=== PATIENT | female | born 2000 | race Caucasian/White ===

== ENCOUNTER 2019-02-10 15:14 | Emergency (ER) | payer MEDICAID ==
[2019-02-10 16:15] LABS: APPEARANCE,URINE SLIGHTLY-CLOUDY; BILIRUBIN,URINE NEGATIVE (NEGATIVE); COLOR,URINE YELLOW; GLUCOSE, URINE NEGATIVE (NEGATIVE); KETONES,URINE NEGATIVE (NEGATIVE); LEUKOCYTE ESTERASE,URINE MODERATE (NEGATIVE); NITRITE,URINE NEGATIVE (NEGATIVE); PROTEIN,URINE 30 mg/dL (NEGATIVE); URINE SPECIFIC GRAVITY 1.023; UROBILINOGEN,URINE NEGATIVE mg/dL (<2.0)
[2019-02-10] MEDS ORDERED: CEPHALEXIN 500 MG CAPSULE PO ONE (16:39)
[2019-02-10] MEDS ORDERED: PHENAZOPYRIDINE HCL 100 MG TABLET PO ONE (16:39)
--- NOTE | 2019-02-10 16:42 | ER Document Report ---
HPI - HPI Patient complains to provider of: uti Time Seen by Provider: 02/10/19 16:02 Onset: Yesterday Onset/Duration: Gradual Quality of pain: Burning Pain Level: 4 Context: Patient reports dysuria that started yesterday. Patient is concerned she may have UTI. Patient denies any flank pain or fever. Patient denies any nausea or vomiting. Associated Symptoms: denies: Fever, Nausea, Vomiting Exacerbated by: Denies Relieved by: Denies Similar symptoms previously: Yes Recently seen / treated by doctor: No - ROS ROS below otherwise negative: Yes Systems Reviewed and Negative: Yes All other systems reviewed and negative - CONSTITUTIONAL Constitutional: DENIES: Fever, Chills - GASTROINTESTINAL Gastrointestinal: REPORTS: Abdominal Pain. DENIES: Nausea, Patient vomiting - URINARY Urinary: REPORTS: Dysuria, Frequency. DENIES: Urgency - REPRODUCTIVE Reproductive: DENIES: : - MUSCULOSKELETAL Musculoskeletal: DENIES: Back Pain - DERM Skin Color: Normal Skin Problems: None Past Medical History - General Information source: Patient - Social History Smoking Status: Current Every Day Smoker Smoking Education Provided: Yes Frequency of alcohol use: None Drug Abuse: None Occupation: none Family History: Reviewed & Not Pertinent - Medical History Medical History: Negative Surgical Hx: Negative Vertical Provider Document - CONSTITUTIONAL Agree With Documented VS: Yes Exam Limitations: No Limitations General Appearance: WD/WN, No Apparent Distress - INFECTION CONTROL TRAVEL OUTSIDE OF THE [place] IN LAST 30 DAYS: No - HEENT HEENT: Atraumatic, Normocephalic - NECK Neck: Normal Inspection, Supple - RESPIRATORY Respiratory: Breath Sounds Normal, No Respiratory Distress - CARDIOVASCULAR Cardiovascular: Regular Rate, Regular Rhythm - GI/ABDOMEN Gastrointestinal: Abdomen Soft, Abdomen Tender - suprapubic - BACK Back: Normal Inspection. negative: CVA Tenderness-Right, CVA Tenderness-Left - MUSCULOSKELETAL/EXTREMETIES Musculoskeletal/Extremeties: MAEW, FROM - NEURO Level of Consciousness: Awake, Alert, Appropriate Motor/Sensory: No Motor Deficit - DERM Integumentary: Warm, Dry, No Rash Course - Re-evaluation Re-evalutation: 02/10/19 16:40 Patient with UTI symptoms. No CVA tenderness, no fever. No concern for pyelonephritis. Patient nontoxic in appearance. Urine culture is pending at this time. - Vital Signs Vital signs: Temp Pulse Resp BP Pulse Ox 97.6 F 95 16 126/70 H 97 02/10/19 15:20 02/10/19 15:20 02/10/19 15:20 02/10/19 15:20 02/10/19 15:20 - Laboratory Laboratory results interpreted by me: 02/10/19 16:00 Urine Protein 30 H Urine Blood MODERATE H Ur Leukocyte Esterase MODERATE H 02/10/19 16:40 Labs- Entire Visit 02/10/19 16:00 Urine Color YELLOW Urine Appearance SLIGHTLY-CLOUDY Urine pH 5.0 Ur Specific [place] 1.023 Urine Protein 30 H Urine Glucose (UA) NEGATIVE Urine Ketones NEGATIVE Urine Blood MODERATE H Urine Nitrite NEGATIVE Urine Bilirubin NEGATIVE Urine Urobilinogen NEGATIVE Ur Leukocyte Esterase MODERATE H Urine WBC (Auto) 94 Urine RBC (Auto) 17 Urine Bacteria (Auto) TRACE Squamous Epi Cells Auto 5 Urine Mucus (Auto) OCC Urine Ascorbic Acid NEGATIVE Discharge - Discharge Clinical Impression: UTI (urinary tract infection) Qualifiers: Urinary tract infection type: site unspecified Hematuria presence: with hematuria Qualified Code(s): N39.0 - Urinary tract infection, site not specified Condition: Stable Disposition: HOME, SELF-CARE Instructions: Cephalexin ([facility]), Urinary Anesthetic Agent ([facility]), Urinary Tract Infection ([facility]) Additional Instructions: Return immediately for any new or worsening symptoms Followup with your primary care provider, call tomorrow to make a followup appointment Urine culture is pending, we will call if you need any different treatment Prescriptions: Cephalexin Monohydrate [Keflex 500 mg Capsule] 500 mg PO Q6H 5 Days capsule Phenazopyridine HCl [Pyridium 200 mg Tablet] 200 mg PO TID #15 tablet Forms: Smoking Cessation Education Referrals: [facility] [Provider Group] - Follow up as needed
[2019-02-10 16:51] VITALS: BP 120/70
== END 2019-02-10 16:45 | disposition home or self-care (01) ==
LOC: ER 15:14
DX: N39.0 Urinary tract infection, site not specified (principal); R30.0 Dysuria; R10.9 Unspecified abdominal pain; R35.0 Frequency of micturition; F17.200 Nicotine dependence, unspecified, uncomplicated
CPT/HCPCS: 99283; 87086; 87088; 81001; 87186; J3490

== ENCOUNTER 2019-08-01 04:06 | Emergency (ER) | payer MEDICAID, OTHER ==
--- NOTE | 2019-08-01 09:24 | ER Document Report ---
ED General - General Chief Complaint: Cough Stated Complaint: COUGH Time Seen by Provider: 08/01/19 08:42 Primary Care Provider: DINESH LAGOS MD [Primary Care Provider] - Follow up as needed Notes: Patient is a 19-year-old white female with past medical history of allergic rhinitis who is currently 21 weeks gestation who presents to the emergency department with a chief complaint of cough for the past 3 days. She states it started off as a runny nose with intermittent nasal congestion. She admits to associated postnasal drainage that is thick. She states she is developed a cough that is dry over the past 3 days. States that when she coughs she feels pain in her anterior chest. She reports with deep breathing of cool air if she feels a burning sensation in the front of the chest. She denies any known fever, nausea, vomiting, diarrhea, abdominal pain or vaginal bleeding. Admits to sick contacts TRAVEL OUTSIDE OF THE [place] IN LAST 30 DAYS: No - Related Data Allergies/Adverse Reactions: No Known Allergies Allergy (Verified 08/01/19 04:23) Home Medications: PRE NATALS Past Medical History - Social History Smoking Status: Former Smoker Family History: Reviewed & Not Pertinent Patient has suicidal ideation: No Patient has homicidal ideation: No Renal/ Medical History: Denies: Hx Peritoneal Dialysis Review of Systems - Review of Systems EENT: Nose congestion, Nose discharge Respiratory: Cough -: Yes All other systems reviewed and negative Physical Exam - Vital signs Vitals: Temp Pulse Resp BP Pulse Ox 98.8 F 98 18 127/61 H 98 08/01/19 04:12 08/01/19 04:12 08/01/19 04:12 08/01/19 04:12 08/01/19 04:12 - General General appearance: Appears well, Alert - HEENT Head: Normocephalic, Atraumatic Eyes: Normal Conjunctiva: Normal Extraocular movements intact: Yes Eyelashes: Normal Pupils: PERRL Ears: Normal External canal: Normal Tympanic membrane: Normal Sinus: Normal Nasal: Normal Mouth/Lips: Normal Mucous membranes: Normal Pharynx: Normal Neck: Normal - Respiratory Respiratory status: No respiratory distress Chest status: Nontender Breath sounds: Normal Chest palpation: Normal - Cardiovascular Rhythm: Regular Heart sounds: Normal auscultation - Abdominal Inspection: Normal, Gravid female Distension: No distension Bowel sounds: Normal Tenderness: Nontender Organomegaly: No organomegaly - Neurological Neuro grossly intact: Yes Cognition: Normal Orientation: AAOx4 [place] Coma Scale Eye Opening: Spontaneous [place] Coma Scale Verbal: Oriented [place] Coma Scale Motor: Obeys Commands [place] Coma Scale Total: 15 Speech: Normal - Psychological Associated symptoms: Normal affect, Normal mood - Skin Skin Temperature: Warm Skin Moisture: Dry Skin Color: Normal Course - Re-evaluation Re-evalutation: 08/01/19 10:53 X-ray showing what appears to be pneumonia per radiologist. Patient will be placed on Zithromax. Counseled her regarding the importance of outpatient follow-up and advised that she return here or any ER immediately with any new, persistent or worsening symptoms. She verbalized understood and agreed. - Vital Signs Vital signs: Temp Pulse Resp BP Pulse Ox 97.9 F 106 H 20 117/68 99 08/01/19 09:09 08/01/19 09:09 08/01/19 09:09 08/01/19 09:09 08/01/19 09:09 Discharge - Discharge Clinical Impression: Pneumonia Qualifiers: Pneumonia type: due to unspecified organism Laterality: unspecified laterality Lung location: unspecified part of lung Qualified Code(s): J18.9 - Pneumonia, unspecified organism Condition: Stable Disposition: HOME, SELF-CARE Instructions: Pneumonia ([facility]) Additional Instructions: Please follow-up with your regular doctor in 2 to 3 days for reevaluation. Return here or any ER immediately with any new, persistent or worsening symptoms. Prescriptions: Azithromycin [Zithromax 250 mg Tablet] 250 mg PO ASDIR PRN #6 tablet PRN Reason: Referrals: DINESH LAGOS MD [Primary Care Provider] - Follow up as needed
--- NOTE | 2019-08-01 10:40 | RADIOLOGY REPORT (SQ) ---
EXAM DESCRIPTION: CHEST 2 VIEWS COMPLETED DATE/TIME: 08/01/2019 9:44 am REASON FOR STUDY: cough COMPARISON: None. EXAM PARAMETERS: NUMBER OF VIEWS: two views TECHNIQUE: Digital Frontal and Lateral radiographic views of the chest acquired. RADIATION DOSE: NA LIMITATIONS: none FINDINGS: LUNGS AND PLEURA: Focal dense consolidation is present in the superior segment right lower lobe worrisome for pneumonia. Lungs are otherwise clear. No pleural effusion or pneumothorax. MEDIASTINUM AND HILAR STRUCTURES: No masses or contour abnormalities. HEART AND VASCULAR STRUCTURES: Heart normal size. No evidence for failure. BONES: No acute findings. HARDWARE: None in the chest. OTHER: No other significant finding. IMPRESSION: Focal dense consolidation superior segment right lower lobe worrisome for pneumonia TECHNICAL DOCUMENTATION: JOB ID: [id number] [employer]- All Rights Reserved Reading location - IP/workstation name: [email or web address]
[2019-08-01 12:01] VITALS: BP 124/68
== END 2019-08-01 11:35 | disposition home or self-care (01) ==
LOC: ER 04:06
DX: O26.892 Other specified pregnancy related conditions, second trimester (principal); J18.9 Pneumonia, unspecified organism; Z3A.21 21 weeks gestation of pregnancy
CPT/HCPCS: 71046

== ENCOUNTER 2019-09-26 17:31 | Outpatient (CLI) | payer MEDICAID ==
[2019-09-26 18:17] LABS: APPEARANCE,URINE SLIGHTLY-CLOUDY; BILIRUBIN,URINE NEGATIVE (NEGATIVE); COLOR,URINE YELLOW; GLUCOSE, URINE NEGATIVE (NEGATIVE); KETONES,URINE NEGATIVE (NEGATIVE); LEUKOCYTE ESTERASE,URINE SMALL (NEGATIVE); NITRITE,URINE NEGATIVE (NEGATIVE); PROTEIN,URINE 30 mg/dL (NEGATIVE); URINE SPECIFIC GRAVITY 1.016; UROBILINOGEN,URINE NEGATIVE mg/dL (<2.0)
[2019-09-26 18:23] LABS: T.VAGINALIS (WET MOUNT) NO TRICHOMONAS SEEN; YEAST (WET MOUNT) NO YEAST SEEN
[2019-09-26 18:24] LABS: BACTERIA (WET MOUNT) 3+ BACTERIA SEEN; EPITHELIALS (WET MOUNT) 3+ EPITHELIALS SEEN; RBCS (WET MOUNT) 1+ RBCS SEEN; WBCS (WET MOUNT) 1+ WBCS SEEN
[2019-09-26 18:53] LABS: URINE AMPHETAMINES SCREEN NEGATIVE; URINE BARBITURATES SCREEN NEGATIVE; URINE BENZODIAZEPINES SCREEN NEGATIVE; URINE COCAINE SCREEN NEGATIVE; URINE MARIJUANA (THC) SCREEN NEGATIVE; URINE METHADONE SCREEN NEGATIVE; URINE PHENCYCLIDINE SCREEN NEGATIVE
--- NOTE | 2019-09-26 19:29 | RADIOLOGY REPORT (SQ) ---
EXAM DESCRIPTION: U/S OB LIMITED IMAGES COMPLETED DATE/TIME: 09/26/2019 7:17 pm REASON FOR STUDY: cervical length, pres, fluid COMPARISON: None. TECHNIQUE: Limited transabdominal grayscale ultrasound for evaluation of specific requested obstetri therese parameters. LIMITATIONS: None. FINDINGS: CERVICAL LENGTH: 2.7 cm Closed. KARLEE: 13.8 cm. FHR: 149 beats per minute. PRESENTATION: Breech PLACENTA: Anterior ANATOMY: Not assessed OTHER: Estimated gestational age 29 weeks 2 days IMPRESSION: LIMITED OBSTETRICAL ULTRASOUND WITH MEASURED PARAMETERS DELINEATED ABOVE. Trimester of : Third trimester - 28 weeks to delivery. TECHNICAL DOCUMENTATION: JOB ID: [id number] 2010 [employer]- All Rights Reserved Reading location - IP/workstation name: [email or web address]
[2019-09-26 20:49] LABS: CHLAM PCR NOT DETECTED (NOT DETECT)
== END 2019-09-26 21:03 | disposition home or self-care (01) ==
LOC: LC 17:31
PROVIDERS: ATTEND Student in an Organized Health Care Education/Training Program
DX: O47.03 False labor before 37 completed weeks of gestation, third trimester (principal); O99.283 Endocrine, nutritional and metabolic diseases complicating pregnancy, third trimester; E86.0 Dehydration; Z3A.29 29 weeks gestation of pregnancy
CPT/HCPCS: 59899; 87210; 81001; 80307; 87491; 87591; 76815; Q0114

== ENCOUNTER 2019-10-26 19:02 | Outpatient (CLI) | payer MEDICARE, MEDICAID ==
[2019-10-26 19:55] LABS: BACTERIA (WET MOUNT) 4+ BACTERIA SEEN; EPITHELIALS (WET MOUNT) 4+ EPITHELIALS SEEN; RBCS (WET MOUNT) 1+ RBCS SEEN; T.VAGINALIS (WET MOUNT) NO TRICHOMONAS SEEN; WBCS (WET MOUNT) 1+ WBCS SEEN; YEAST (WET MOUNT) NO YEAST SEEN
[2019-10-26 19:58] LABS: APPEARANCE,URINE CLOUDY; BILIRUBIN,URINE NEGATIVE (NEGATIVE); CALCIUM OXALATE CRYSTALS,URINE TOO NUMEROUS TO CNT /HPF; COLOR,URINE AMBER; GLUCOSE, URINE 50 mg/dL (NEGATIVE); KETONES,URINE TRACE mg/dL (NEGATIVE); LEUKOCYTE ESTERASE,URINE MODERATE (NEGATIVE); NITRITE,URINE NEGATIVE (NEGATIVE); PROTEIN,URINE 100 mg/dL (NEGATIVE); URINE SPECIFIC GRAVITY 1.033
[2019-10-26 20:22] LABS: URINE AMPHETAMINES SCREEN NEGATIVE; URINE BARBITURATES SCREEN NEGATIVE; URINE BENZODIAZEPINES SCREEN NEGATIVE; URINE COCAINE SCREEN NEGATIVE; URINE MARIJUANA (THC) SCREEN NEGATIVE; URINE METHADONE SCREEN NEGATIVE; URINE PHENCYCLIDINE SCREEN NEGATIVE
[2019-10-26 21:21] LABS: CHLAM PCR NOT DETECTED (NOT DETECT)
--- NOTE | 2019-10-26 22:12 | Non Stress Test Report ---
Non Stress Test Datetime Report Generated by CPN: 10/26/2019 22:12 DEMOGRAPHIC Test Number: 1 EGA NST: 33.4 INDICATION Indication for Study (NST) Other: LC URINE RESULTS Urine Protein, NST: Positive Urine Ketones - NST: Negative Urine Glucose - NST: Negative Urine Blood - NST: Negative MONITORING Monitor Explained: Monitor Explained; Test Explained; Patient Verbalized Understanding Time on Monitor: 10/26/2019 19:35 Time off Monitor: 10/26/2019 21:35 NST Duration: 120 NST INTERVENTIONS NST Interventions: PO Hydration Physician Notified NST: Dr. Rosado BABY A: [id number] BABY A Movement : Present Contraction Frequency : x1 FHR Baseline : 130 Accelerations : 15X15 Decelerations : None Variability : Moderate 6-25bpm NST Review: Meets Criteria for Reactive NST NST Review and Verified By : García Rich RN NST Results: Reactive NST REPORT Report Trigger: Send Report
== END 2019-10-26 21:49 | disposition home or self-care (01) ==
LOC: LC 19:02
PROVIDERS: ATTEND Student in an Organized Health Care Education/Training Program
DX: O47.03 False labor before 37 completed weeks of gestation, third trimester (principal); Z3A.33 33 weeks gestation of pregnancy
CPT/HCPCS: 59025; 80307; 81001; 84112; 87086; 87210; 87491; 87591

== ENCOUNTER 2019-11-21 20:22 | Outpatient (CLI) | payer MEDICARE, MEDICAID ==
[2019-11-21 21:45] LABS: APPEARANCE,URINE SLIGHTLY-CLOUDY; BILIRUBIN,URINE NEGATIVE (NEGATIVE); COLOR,URINE YELLOW; GLUCOSE, URINE NEGATIVE (NEGATIVE); KETONES,URINE TRACE mg/dL (NEGATIVE); LEUKOCYTE ESTERASE,URINE SMALL (NEGATIVE); NITRITE,URINE NEGATIVE (NEGATIVE); PROTEIN,URINE NEGATIVE (NEGATIVE); URINE SPECIFIC GRAVITY 1.008; UROBILINOGEN,URINE NEGATIVE mg/dL (<2.0)
[2019-11-21 22:07] LABS: URINE AMPHETAMINES SCREEN NEGATIVE; URINE BARBITURATES SCREEN NEGATIVE; URINE BENZODIAZEPINES SCREEN NEGATIVE; URINE COCAINE SCREEN NEGATIVE; URINE MARIJUANA (THC) SCREEN NEGATIVE; URINE METHADONE SCREEN NEGATIVE; URINE PHENCYCLIDINE SCREEN NEGATIVE
== END 2019-11-21 22:13 | disposition home or self-care (01) ==
LOC: LC 20:22
PROVIDERS: ATTEND Student in an Organized Health Care Education/Training Program
DX: O47.1 False labor at or after 37 completed weeks of gestation (principal); Z3A.37 37 weeks gestation of pregnancy
CPT/HCPCS: 59025; 80307; 81005

== ENCOUNTER 2019-12-01 08:51 | Outpatient (CLI) | payer MEDICARE, MEDICAID ==
[2019-12-01 09:43] LABS: BACTERIA (WET MOUNT) 4+ BACTERIA SEEN; EPITHELIALS (WET MOUNT) 4+ EPITHELIALS SEEN; RBCS (WET MOUNT) 1+ RBCS SEEN; T.VAGINALIS (WET MOUNT) NO TRICHOMONAS SEEN; WBCS (WET MOUNT) 3+ WBCS SEEN; YEAST (WET MOUNT) NO YEAST SEEN
[2019-12-01 09:44] LABS: AMORPHOUS SEDIMENT,URINE TRACE /HPF; APPEARANCE,URINE CLOUDY; BILIRUBIN,URINE NEGATIVE (NEGATIVE); COLOR,URINE AMBER; GLUCOSE, URINE NEGATIVE (NEGATIVE); KETONES,URINE NEGATIVE (NEGATIVE); LEUKOCYTE ESTERASE,URINE LARGE (NEGATIVE); NITRITE,URINE NEGATIVE (NEGATIVE); PROTEIN,URINE 30 mg/dL (NEGATIVE); UROBILINOGEN,URINE NEGATIVE mg/dL (<2.0)
[2019-12-01 10:04] LABS: URINE AMPHETAMINES SCREEN NEGATIVE; URINE BARBITURATES SCREEN NEGATIVE; URINE BENZODIAZEPINES SCREEN NEGATIVE; URINE COCAINE SCREEN NEGATIVE; URINE MARIJUANA (THC) SCREEN NEGATIVE; URINE METHADONE SCREEN NEGATIVE; URINE PHENCYCLIDINE SCREEN NEGATIVE
--- NOTE | 2019-12-01 11:57 | Non Stress Test Report ---
Non Stress Test Datetime Report Generated by CPN: 12/01/2019 11:56 DEMOGRAPHIC EGA NST: 38.5 INDICATION Indication for Study (NST) Other: LC- not ruptured MONITORING Monitor Explained: Monitor Explained; Test Explained; Patient Verbalized Understanding Time on Monitor: 12/01/2019 10:30 Time off Monitor: 12/01/2019 10:51 NST Duration: 21 NST INTERVENTIONS NST Interventions: PO Hydration Physician Notified NST: K. Hutchinson CNM BABY A Movement : Present Contraction Frequency : irregular Accelerations : 15X15 Decelerations : None Variability : Moderate 6-25bpm NST Review: Meets Criteria for Reactive NST NST Review and Verified By : Dhruv Romero RN NST Results: Reactive NST COMMENTS NST Comments: CNM on unit reviewing FHT strip NST REPORT Report Trigger: Send Report
[2019-12-01 12:39] LABS: CHLAM PCR NOT DETECTED (NOT DETECT)
== END 2019-12-01 11:53 | disposition home or self-care (01) ==
LOC: LC 08:51
PROVIDERS: ATTEND Student in an Organized Health Care Education/Training Program
DX: O47.1 False labor at or after 37 completed weeks of gestation (principal); Z3A.38 38 weeks gestation of pregnancy
CPT/HCPCS: 59025; 80307; 81001; 84112; 87210; 87491; 87591

== ENCOUNTER 2019-12-02 18:31 | Outpatient (CLI) | payer MEDICARE, MEDICAID ==
[2019-12-02 19:40] LABS: APPEARANCE,URINE CLEAR; BILIRUBIN,URINE NEGATIVE (NEGATIVE); COLOR,URINE YELLOW; GLUCOSE, URINE NEGATIVE (NEGATIVE); KETONES,URINE NEGATIVE (NEGATIVE); LEUKOCYTE ESTERASE,URINE TRACE (NEGATIVE); NITRITE,URINE NEGATIVE (NEGATIVE); PROTEIN,URINE NEGATIVE (NEGATIVE); URINE SPECIFIC GRAVITY 1.004; UROBILINOGEN,URINE NEGATIVE mg/dL (<2.0)
[2019-12-02 20:01] LABS: URINE AMPHETAMINES SCREEN NEGATIVE; URINE BARBITURATES SCREEN NEGATIVE; URINE BENZODIAZEPINES SCREEN NEGATIVE; URINE COCAINE SCREEN NEGATIVE; URINE MARIJUANA (THC) SCREEN NEGATIVE; URINE METHADONE SCREEN NEGATIVE; URINE PHENCYCLIDINE SCREEN NEGATIVE
== END 2019-12-02 19:35 | disposition home or self-care (01) ==
LOC: LC 18:31
PROVIDERS: ATTEND Obstetrics & Gynecology Gynecology
DX: O47.1 False labor at or after 37 completed weeks of gestation (principal); Z3A.38 38 weeks gestation of pregnancy; Z91.018 Allergy to other foods
CPT/HCPCS: 80307; 81005

== ENCOUNTER 2019-12-05 15:16 | Outpatient (CLI) | payer MEDICARE, MEDICAID ==
[2019-12-05 16:18] LABS: APPEARANCE,URINE CLEAR; BILIRUBIN,URINE NEGATIVE (NEGATIVE); COLOR,URINE YELLOW; GLUCOSE, URINE NEGATIVE (NEGATIVE); KETONES,URINE NEGATIVE (NEGATIVE); LEUKOCYTE ESTERASE,URINE TRACE (NEGATIVE); NITRITE,URINE NEGATIVE (NEGATIVE); PROTEIN,URINE NEGATIVE (NEGATIVE); URINE SPECIFIC GRAVITY 1.009; UROBILINOGEN,URINE NEGATIVE mg/dL (<2.0)
[2019-12-05 16:35] LABS: URINE AMPHETAMINES SCREEN NEGATIVE; URINE BARBITURATES SCREEN NEGATIVE; URINE BENZODIAZEPINES SCREEN NEGATIVE; URINE COCAINE SCREEN NEGATIVE; URINE MARIJUANA (THC) SCREEN NEGATIVE; URINE METHADONE SCREEN NEGATIVE; URINE PHENCYCLIDINE SCREEN NEGATIVE
== END 2019-12-05 16:53 | disposition home or self-care (01) ==
LOC: LC 15:16
PROVIDERS: ATTEND Student in an Organized Health Care Education/Training Program
DX: O47.1 False labor at or after 37 completed weeks of gestation (principal); Z3A.39 39 weeks gestation of pregnancy; Z91.018 Allergy to other foods
CPT/HCPCS: 80307; 81005

== ENCOUNTER 2019-12-07 20:54 | Outpatient (CLI) | payer MEDICARE, MEDICAID ==
[2019-12-07 21:56] LABS: APPEARANCE,URINE CLEAR; BILIRUBIN,URINE NEGATIVE (NEGATIVE); COLOR,URINE YELLOW; GLUCOSE, URINE NEGATIVE (NEGATIVE); KETONES,URINE TRACE mg/dL (NEGATIVE); LEUKOCYTE ESTERASE,URINE NEGATIVE (NEGATIVE); NITRITE,URINE NEGATIVE (NEGATIVE); PROTEIN,URINE NEGATIVE (NEGATIVE); URINE SPECIFIC GRAVITY 1.009
[2019-12-07 22:19] LABS: URINE AMPHETAMINES SCREEN NEGATIVE; URINE BARBITURATES SCREEN NEGATIVE; URINE BENZODIAZEPINES SCREEN NEGATIVE; URINE COCAINE SCREEN NEGATIVE; URINE MARIJUANA (THC) SCREEN NEGATIVE; URINE METHADONE SCREEN NEGATIVE; URINE PHENCYCLIDINE SCREEN NEGATIVE
--- NOTE | 2019-12-09 15:07 | Non Stress Test Report ---
Non Stress Test Datetime Report Generated by CPN: 12/09/2019 15:07 DEMOGRAPHIC EGA NST: 39.4 INDICATION Indication for Study (NST) Other: Labor check MONITORING Monitor Explained: Monitor Explained; Test Explained; Patient Verbalized Understanding Time on Monitor: 12/07/2019 21:15 Time off Monitor: 12/07/2019 22:25 NST Duration: 70 NST INTERVENTIONS NST Interventions: PO Hydration Physician Notified NST: Dr. English BABY A: [id number] BABY A Movement : Present Contraction Frequency : irregular FHR Baseline : 135 Accelerations : 15X15 Decelerations : None Variability : Moderate 6-25bpm NST Review: Meets Criteria for Reactive NST NST Review and Verified By : García Rich RN NST Results: Reactive NST REPORT Report Trigger: Send Report
== END 2019-12-07 22:40 | disposition home or self-care (01) ==
LOC: LC 20:54
PROVIDERS: ATTEND Obstetrics & Gynecology
DX: O47.1 False labor at or after 37 completed weeks of gestation (principal); Z3A.39 39 weeks gestation of pregnancy
CPT/HCPCS: 80307; 81005; 84112

== ENCOUNTER 2019-12-09 16:19 | Inpatient (IN) | payer MEDICARE, MEDICAID ==
[2019-12-09 17:48] LABS: APPEARANCE,URINE SLIGHTLY-CLOUDY; BILIRUBIN,URINE NEGATIVE (NEGATIVE); COLOR,URINE YELLOW; GLUCOSE, URINE NEGATIVE (NEGATIVE); KETONES,URINE TRACE mg/dL (NEGATIVE); LEUKOCYTE ESTERASE,URINE LARGE (NEGATIVE); NITRITE,URINE NEGATIVE (NEGATIVE); PROTEIN,URINE NEGATIVE (NEGATIVE); URINE SPECIFIC GRAVITY 1.005; UROBILINOGEN,URINE NEGATIVE mg/dL (<2.0)
[2019-12-09 18:59] LABS: ABSOLUTE LYMPHOCYTES (AUTO) 1.7 10^3/uL (0.5-4.7); ABSOLUTE MONOCYTES (AUTO) 0.4 10^3/uL (0.1-1.4); ABSOLUTE NEUT (AUTO) 8.5 10^3/uL (1.7-8.2); BASOPHILS % (AUTO) 0.4 % (0-2); EOSINOPHILS % (AUTO) 0.2 % (0-6); HEMATOCRIT 37.7 % (36.0-47.0); HEMOGLOBIN 12.9 g/dL (12.0-15.5); LYMPHOCYTES % (AUTO) 15.7 % (13-45); MEAN CORPUSCULAR HEMOGLOBIN 30.2 pg (27.0-33.4); MEAN CORPUSCULAR HGB CONC 34.2 g/dL (32.0-36.0); MEAN CORPUSCULAR VOLUME 89 fl (80-97); MONOCYTES % (AUTO) 4.2 % (3-13); PLATELET COUNT 235 10^3/uL (150-450); RED BLOOD COUNT 4.26 10^6/uL (3.72-5.28); SEGMENTED NEUTROPHILS % (AUTO) 79.5 % (42-78); TOTAL CELLS COUNTED % (AUTO) 100 %; WHITE BLOOD COUNT 10.6 10^3/uL (4.0-10.5)
[2019-12-09 19:03] LABS: URINE AMPHETAMINES SCREEN NEGATIVE; URINE BARBITURATES SCREEN NEGATIVE; URINE BENZODIAZEPINES SCREEN NEGATIVE; URINE COCAINE SCREEN NEGATIVE; URINE MARIJUANA (THC) SCREEN NEGATIVE; URINE METHADONE SCREEN NEGATIVE; URINE PHENCYCLIDINE SCREEN NEGATIVE
[2019-12-09] MEDS ORDERED: RINGERS SOLUTION,LACTATED 1,000 ML IV PRN (19:04)
[2019-12-09] MEDS ORDERED: RINGERS SOLUTION,LACTATED 1,000 ML IV ONE (19:04)
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
[2019-12-09] MEDS ORDERED: OXYTOCIN 10 UNIT/ML VIAL ONE (19:35)
[2019-12-09] MEDS ORDERED: LIDOCAINE 1% INJ-PF (10 MG/ML) 30 ML SDV ONE (19:36)
[2019-12-09] MEDS ORDERED: OXYTOCIN/0.9 % SODIUM CHLORIDE 30 UNIT/500 ML RTUINJ ONE (19:36)
[2019-12-09] MEDS ORDERED: MISOPROSTOL 0.2 MG TABLET ONE (19:36)
[2019-12-09] MEDS ORDERED: PENICILLIN G-K 5 MILLION UNIT VIAL ONE (20:12)
[2019-12-09] MEDS ORDERED: PENICILLIN G POTASSIUM 5,000,000 UNIT in DEXTROSE 5%-WATER 100 ML IV ONE (20:32)
[2019-12-09] MEDS ORDERED: PROMETHAZINE HCL INJ 25 MG/1 ML VIAL IV ONE (21:34)
[2019-12-09] MEDS ORDERED: NALBUPHINE HCL INJ 10 MG/1 ML AMPULE INJ ONE (21:34)
[2019-12-09] MEDS ORDERED: OXYTOCIN/0.9 % SODIUM CHLORIDE 30 UNIT/500 ML RTUINJ IV PRN ×2 (21:35→23:57)
[2019-12-09] MEDS ORDERED: PROMETHAZINE HCL INJ 25 MG/1 ML VIAL ONE (21:35)
[2019-12-09] MEDS ORDERED: NALBUPHINE HCL INJ 10 MG/1 ML AMPULE ONE (21:35)
[2019-12-09] MEDS ORDERED: EPHEDRINE SULFATE INJ 50 MG/1 ML AMPULE ONE (22:36)
[2019-12-09] MEDS ORDERED: BUPIVACAINE HCL 0.25 % INJ/PF (2.5 MG/1 ML) 30 ML VIAL ONE (22:37)
[2019-12-09] MEDS ORDERED: FENTANYL/BUPIVACAINE/NS/PF 0 MCG/0 ML RTUINJ EPI ONE (22:37)
[2019-12-09] MEDS ORDERED: ACETAMINOPHEN WITH CODEINE #3 TABLET PO PRN ×2 (23:57)
[2019-12-09] MEDS ORDERED: PSEUDOEPHEDRINE HCL 30 MG TABLET PO PRN (23:57)
[2019-12-09] MEDS ORDERED: BENZOCAINE/MENTHOL AEROSOL SPRAY 56 ML TOP PRN (23:57)
[2019-12-09] MEDS ORDERED: DIPH/PERTUSS(ACELL)/TETANUS VAC/PF 0.5 ML SYR (>=10YO) IM PRN (23:57)
[2019-12-09] MEDS ORDERED: ZOLPIDEM TARTRATE 5 MG TABLET PO PRN (23:57)
[2019-12-09] MEDS ORDERED: ACETAMINOPHEN 650 MG SUPP.RECT PR PRN (23:57)
[2019-12-09] MEDS ORDERED: MAGNESIUM HYDROXIDE SUSP 30 ML UDCUP PO PRN (23:57)
[2019-12-09] MEDS ORDERED: NA PHOS,M-B/NA PHOS,DI-BA (ADULT) 133 ML ENEMA PR PRN (23:57)
[2019-12-09] MEDS ORDERED: PROMETHAZINE HCL 25 MG TABLET PO PRN (23:57)
[2019-12-09] MEDS ORDERED: DIBUCAINE 1% OINTMENT 28 GM TP PRN (23:57)
[2019-12-09] MEDS ORDERED: MEASLES,MUMPS&RUBELLA VACC/PF 0.5 ML VIAL SUBCUT PRN (23:57)
[2019-12-09] MEDS ORDERED: PROMETHAZINE HCL INJ 25 MG/1 ML VIAL IV PRN (23:57)
[2019-12-09] MEDS ORDERED: DIPHENHYDRAMINE HCL 25 MG CAPSULE PO PRN (23:57)
[2019-12-09] MEDS ORDERED: GLYCERIN/WITCH HAZEL LEAF 1 EACH MED..WIPE TP PRN (23:57)
[2019-12-09] MEDS ORDERED: PROMETHAZINE HCL 25 MG SUPP.RECT PR PRN (23:57)
[2019-12-10] MEDS ORDERED: PENICILLIN G POTASSIUM 2,500,000 UNIT in DEXTROSE 5%-WATER 50 ML IV SCH (00:30)
[2019-12-10] MEDS ORDERED: IBUPROFEN 800 MG TABLET ONE (00:38)
--- NOTE | 2019-12-10 01:01 | Delivery Summary ---
Del Sum A-C Datetime Report Generated by CPN: 12/10/2019 01:01 DELIVERY PERSONNEL DELIVERY PERSONNEL: [id number] Delivery Doctor:: Angélica Graf MD Labor and Delivery Nurse:: Kimberley Lujan RNscreen tacker Nurse:: Jada Ayala RN Night Nurse:: JAROD Frazier Nursery Nurse:: xi irizarry RN Nursery Nurse:: margaret aviles RN Medical Records Field Technician/CLERK: Noa Flynn, ST MATERNAL INFORMATION Delivery Anesthesia: None Medications After Delivery: Pitocin 30 Units in 500ml NS/D5W Estimated Blood Loss (ml): 200 Maternal Complications: Other Complication Details: mental LABOR SUMMARY EDC: 12/10/2019 00:00 No. Babies in Womb: 1 Attempted: No Labor Anesthesia: IV Sedation LABOR INFORMATION Reason for Induction: Not Applicable Onset of Labor: 12/09/2019 17:36 Complete Dilatation: 12/09/2019 23:10 Oxytocin: Augmentation Group B Beta Strep: POSITIVE Antibiotics # of Doses: 1 Antibiotics Time of Last Dose: 2017 Name of Antibiotic Given: penicillin Steroids Given: None Reason Steroids Not Administered: Not Applicable MEMBRANES Membranes Rupture Method: Artificial Rupture of Membranes: 12/09/2019 21:28 Length of Rupture (hr): 2.00 Amniotic Fluid Color: Clear Amniotic Fluid Amount: Small Amniotic Fluid Odor: Normal STAGES OF LABOR Stage 1 hr: 5 Stage 1 min: 34 Stage 2 hr: 0 Stage 2 min: 18 Stage 3 hr: 24 Stage 3 min: 3 Total Time in Labor hr: 29 Total Time in Labor min: 55 VAGINAL DELIVERY Episiotomy: None Laceration #1: Vaginal Laceration Extension #1: Second Degree Laceration Repair: Yes Laceration Repair Note: 2-0 chromic in normal fashion Sponge Count Correct: Yes Sharps Count Correct: Yes CSECTION DELIVERY Primary Indication: N/A Secondary Indication: N/A CSection Incidence: N/A Labor: N/A Elective: N/A CSection Incision: N/A BABY A INFORMATION Delivery Date/Time: 12/09/2019 23:28 Method of Delivery: Vaginal Nurse Controlled Delivery: No Born in Route : No : N/A Forceps: N/A Vacuum Extraction: N/A Shoulder Dystocia : No PRESENTATION/POSITION BABY A Presentation: Cephalic Cephalic Presentation: Vertex Vertex Position: Left Occipital Anterior Breech Presentation: N/A PLACENTA INFORMATION BABY A Placenta Delivery Time : 12/10/2019 23:31 Placenta Method of Delivery: Spontaneous Placenta Status: Delivered SCORES BABY A Heart Rate 1 min: >100 bpm Resp Effort 1 min: Slow, Irregular Reflex Irritability 1 min: Cough or Sneeze or Pulls Away Muscle Tone 1 min: Active Motion Color 1 min: Body Mallard, Extremities Blue Resuscitation Effort 1 min: Tactile Stimulation SCORE 1 MIN: 8 Heart Rate 5 min: >100 bpm Resp Effort 5 min: Good Cry Reflex Irritability 5 min: Cough or Sneeze or Pulls Away Muscle Tone 5 min: Active Motion Color 5 min: Body Mallard, Extremities Blue Resuscitation Effort 5 min: Tactile Stimulation SCORE 5 MIN: 9 INFORMATION BABY A Gestational Age at Delivery: 39.6 Gestational Status: Full Term- 39- 40.6 Weeks Infant Outcome : Liveborn Infant Condition : Stable Sex: Female IDENTIFICATION BABY A Verification Date/Time: 12/09/2019 23:37 ID Band Number: [id number] Mother's Name Verified: Yes RN Verifying Infant: SNamrata Lujan, RN Additional Verifying Personnel: LNamrata Flynn, TOBACCO GROWER WEIGHT/LENGTH BABY A Infant Birthweight (gm): 3455 Weight (lb): 7 Weight (oz): 10 Infant Length (in): 21.00 Length (cm): 53.34 CORD INFORMATION BABY A No. Cord Vessels: 3 Nuchal Cord : Around Neck x1, Loose Cord Blood Taken: Yes-For Storage (Mom's Blood type +) Suction: Mouth; Nose BABY B INFORMATION : N/A SIGNATURES Signature: with User ID: [email or web address]
[2019-12-10] MEDS: FAMOTIDINE 20 MG TABLET PO SCH ×3 (03:51→21:03)
[2019-12-10] MEDS ORDERED: IBUPROFEN 800 MG TABLET PO SCH (06:00)
[2019-12-10 07:58] LABS: HEMATOCRIT 33.1 % (36.0-47.0); HEMOGLOBIN 11.4 g/dL (12.0-15.5); MEAN CORPUSCULAR HEMOGLOBIN 30.2 pg (27.0-33.4); MEAN CORPUSCULAR HGB CONC 34.3 g/dL (32.0-36.0); MEAN CORPUSCULAR VOLUME 88 fl (80-97); PLATELET COUNT 205 10^3/uL (150-450); RED BLOOD COUNT 3.76 10^6/uL (3.72-5.28); WHITE BLOOD COUNT 12.1 10^3/uL (4.0-10.5)
[2019-12-10] MEDS: DOCUSATE SODIUM 100 MG CAPSULE PO SCH ×2 (09:47→19:06)
[2019-12-10] MEDS: PRENATAL VITAMIN W DHA CAPSULE PO SCH (09:47)
[2019-12-10] MEDS: FERROUS SULFATE 325 MG TABLET PO SCH ×2 (09:48→19:05)
[2019-12-10] MEDS: SENNOSIDES/DOCUSATE 8.6-50 MG 1 EACH TABLET PO SCH (09:52)
--- NOTE | 2019-12-10 10:52 | PDOC PROGRESS REPORT ---
Subjective-OB Progress Note for:: 12/10/19 Physical Exam (OB) Vital Signs: Temp Pulse Resp BP Pulse Ox 97.9 F 83 16 126/78 H 100 12/10/19 07:55 12/10/19 07:55 12/10/19 07:55 12/10/19 07:55 12/10/19 07:55 Intake & Output 12/09/19 12/10/19 12/11/19 06:59 06:59 06:59 Intake Total 580 Output Total 700 Balance -700 580 Weight 82.6 kg - PIH/Pre-Eclampsia Headache: Absent Epigastric Pain: No Visual Changes: No - Lochia Lochia Amount: Small 10-25 ml Lochia Color: Rubra/Red - Abdomen Description: Tender Hernia Present: No Bowel Sounds: Normoactive Flatus Presence: Present Stool: No Fundal Description: Firm Fundal Height: u/u - u/2 Objective-Diagnostic Laboratory: 12/10/19 07:48 12/09/19 12/09/19 12/09/19 16:35 18:37 18:37 WBC 10.6 H RBC 4.26 Hgb 12.9 Hct 37.7 MCV 89 MCH 30.2 MCHC 34.2 RDW 14.0 Plt Count 235 Seg Neutrophils % 79.5 H Urine Color YELLOW Urine Appearance SLIGHTLY-CLOUDY Urine pH 7.0 Ur Specific [place] 1.005 Urine Protein NEGATIVE Urine Glucose (UA) NEGATIVE Urine Ketones TRACE H Urine Blood NEGATIVE Urine Nitrite NEGATIVE Ur Leukocyte Esterase LARGE H Blood Type A POSITIVE Antibody Screen NEGATIVE 12/10/19 07:48 WBC 12.1 H RBC 3.76 Hgb 11.4 L Hct 33.1 L MCV 88 MCH 30.2 MCHC 34.3 RDW 14.0 Plt Count 205 Seg Neutrophils % Urine Color Urine Appearance Urine pH Ur Specific [place] Urine Protein Urine Glucose (UA) Urine Ketones Urine Blood Urine Nitrite Ur Leukocyte Esterase Blood Type Antibody Screen
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
[2019-12-10] MEDS: IBUPROFEN 800 MG TABLET PO SCH (19:06)
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
[2019-12-11] MEDS: IBUPROFEN 800 MG TABLET PO SCH ×3 (02:27→18:18)
[2019-12-11] MEDS ORDERED: (PENDING PHARMACY ID) (Sertraline Hcl [Sertraline Hcl] 25 MG) PO SCH (10:00)
[2019-12-11] MEDS: OLANZAPINE 2.5 MG TABLET PO SCH ×2 (10:19→18:18)
[2019-12-11] MEDS: FAMOTIDINE 20 MG TABLET PO SCH ×2 (10:20→22:12)
[2019-12-11] MEDS: PRENATAL VITAMIN W DHA CAPSULE PO SCH (10:20)
[2019-12-11] MEDS: DOCUSATE SODIUM 100 MG CAPSULE PO SCH ×2 (10:21→18:18)
[2019-12-11] MEDS: FERROUS SULFATE 325 MG TABLET PO SCH ×2 (10:22→18:18)
[2019-12-11] MEDS: SENNOSIDES/DOCUSATE 8.6-50 MG 1 EACH TABLET PO SCH (10:22)
--- NOTE | 2019-12-11 11:24 | PDOC PROGRESS REPORT ---
Subjective-OB Progress Note for:: 12/11/19 Subjective: Pt is on the phone with her sister who she lives with. FOB at bedside. Pt is distressed and cannot answer question about her bleeding, whether it is heavy or light. She seem to be confused and frustrated. Pt cannot seem to answer simple questions on her own and is seemingly overwhelmed with having different people in her room to check on her and ask her questions. She is unable to hold a conversation and is on the verge of tears. Her sister on the phone was trying to keep her calm and explain that we are just there to check on her because patient states that people keep coming in and leaving her. RN in room trying to assess patient. Physical Exam (OB) Vital Signs: Temp Pulse Resp BP Pulse Ox 97.8 F 86 20 121/64 98 12/11/19 08:00 12/11/19 08:00 12/11/19 08:00 12/11/19 08:00 12/11/19 08:00 Intake & Output 12/10/19 12/11/19 12/12/19 06:59 06:59 06:59 Intake Total 1180 480 Output Total 700 Balance -700 1180 480 Weight 82.6 kg - PIH/Pre-Eclampsia DTR's: 2 + Clonus: Negative Headache: Absent Epigastric Pain: No Visual Changes: No - Lochia Lochia Amount: Scant < 10 ml Lochia Color: Rubra/Red - Abdomen Description: Soft Hernia Present: Yes Fundal Description: Firm Fundal Height: u/u - u/2 Objective-Diagnostic Laboratory: 12/10/19 07:48 Assessment and Plan(PN) - Assessment and Plan (1) Active labor at term Is this a current diagnosis for this admission?: Yes (2) Bipolar 1 disorder Is this a current diagnosis for this admission?: Yes (4) Learning disability Is this a current diagnosis for this admission?: Yes (5) Qualifiers: Weeks of gestation: unspecified Qualified Code(s): Z34.90 - Encounter for supervision of normal , unspecified, unspecified trimester Is this a current diagnosis for this admission?: Yes (6) Schizophrenia Qualifiers: Schizophrenia type: unspecified Qualified Code(s): F20.9 - Schizophrenia, unspecified Is this a current diagnosis for this admission?: Yes - Time Spent with Patient Time with patient: Less than 15 minutes Medications reviewed and adjusted accordingly: Yes - Disposition Anticipated Discharge: Home Within: within 24 hours
[2019-12-11] MEDS ORDERED: SERTRALINE HCL 50 MG TABLET PO SCH (18:00)
[2019-12-12] MEDS: IBUPROFEN 800 MG TABLET PO SCH ×2 (01:22→09:47)
[2019-12-12] MEDS: PRENATAL VITAMIN W DHA CAPSULE PO SCH (09:47)
[2019-12-12] MEDS: FAMOTIDINE 20 MG TABLET PO SCH (09:47)
[2019-12-12] MEDS: FERROUS SULFATE 325 MG TABLET PO SCH (09:47)
[2019-12-12] MEDS: SENNOSIDES/DOCUSATE 8.6-50 MG 1 EACH TABLET PO SCH (09:47)
[2019-12-12] MEDS: DOCUSATE SODIUM 100 MG CAPSULE PO SCH (09:48)
--- NOTE | 2019-12-12 10:03 | PDOC PROGRESS REPORT ---
Subjective-OB Progress Note for:: 12/12/19 Subjective: Doing well, sitting on side of bed eating and sister in room, doing most of the talking, feels good about going homel going to stay with sister and has plenty of help, does not want to take medicine that would keep her from . Feels mood is stable, plans to breast and bottle Physical Exam (OB) Vital Signs: Temp Pulse Resp BP Pulse Ox 97.7 F 74 18 115/63 100 12/11/19 20:53 12/11/19 20:53 12/11/19 20:53 12/11/19 20:53 12/11/19 20:53 Intake & Output 12/11/19 12/12/19 12/13/19 06:59 06:59 06:59 Intake Total 1180 480 Balance 1180 480 - PIH/Pre-Eclampsia DTR's: 2 + Clonus: Negative Headache: Absent Epigastric Pain: No Visual Changes: No - Lochia Lochia Amount: Scant < 10 ml Lochia Color: Rubra/Red - Abdomen Description: Soft Hernia Present: No Fundal Description: Firm, Midline Fundal Height: u/u - u/2 Objective-Diagnostic Laboratory: 12/10/19 07:48 Assessment and Plan(PN) - Assessment and Plan (1) Delivery normal Is this a current diagnosis for this admission?: Yes (2) Active labor at term Is this a current diagnosis for this admission?: Yes (3) Learning disability Is this a current diagnosis for this admission?: Yes (4) Schizophrenia Qualifiers: Schizophrenia type: unspecified Qualified Code(s): F20.9 - Schizophrenia, unspecified Is this a current diagnosis for this admission?: Yes (5) Bipolar 1 disorder Is this a current diagnosis for this admission?: Yes - Time Spent with Patient Time with patient: Less than 15 minutes Medications reviewed and adjusted accordingly: Yes - Disposition Anticipated Discharge: Home Within: within 24 hours
--- NOTE | 2019-12-12 10:09 | PDOC DISCHARGE SUMMARY ---
Impression - Admit/DC Date/PCP Admission Date/Primary Care Provider: 12/09/19 17:50 WILMA CHAPPELL MD Discharge Date: 12/12/19 - Discharge Diagnosis (1) Delivery normal Is this a current diagnosis for this admission?: Yes (2) Active labor at term Is this a current diagnosis for this admission?: Yes (3) Learning disability Is this a current diagnosis for this admission?: Yes (4) Schizophrenia Is this a current diagnosis for this admission?: Yes (5) Bipolar 1 disorder Is this a current diagnosis for this admission?: Yes - Additional Information Resuscitation Status: Full Code Discharge Diet: As Tolerated, Regular Discharge Activity: Activity As Tolerated, No Lifting Over 10 Pounds, Pelvic Rest Referrals: WILMA CHAPPELL MD [Primary Care Provider] - (2 weeks at [facility], [facility] made by sister) Home Medications: Prenat 115/Iron Fum/Folic/Dss [ 19 Tablet] 1 tab PO DAILY 09/26/19 Sertraline HCl 25 mg PO DAILY 12/09/19 HPI Gestational Age: 39.6 Reason(s) for Admission: Onset of Labor, Group B Strep Positive Procedures: Ultrasound Intrapartum Procedure(s): Spontaneous Vaginal Delivery Complication(s): Laceration-Vaginal Laceration-Degree: 2nd Hospital Course Hospital Course: routine Results Laboratory Results: WBC 12.1 10^3/uL (4.0-10.5) H 12/10/19 07:48 RBC 3.76 10^6/uL (3.72-5.28) 12/10/19 07:48 Hgb 11.4 g/dL (12.0-15.5) L 12/10/19 07:48 Hct 33.1 % (36.0-47.0) L 12/10/19 07:48 MCV 88 fl (80-97) 12/10/19 07:48 MCH 30.2 pg (27.0-33.4) 12/10/19 07:48 MCHC 34.3 g/dL (32.0-36.0) 12/10/19 07:48 RDW 14.0 % (11.5-14.0) 12/10/19 07:48 Plt Count 205 10^3/uL (150-450) 12/10/19 07:48 Lymph % (Auto) 15.7 % (13-45) 12/09/19 18:37 [place] % (Auto) 4.2 % (3-13) 12/09/19 18:37 Eos % (Auto) 0.2 % (0-6) 12/09/19 18:37 Baso % (Auto) 0.4 % (0-2) 12/09/19 18:37 Absolute Neuts (auto) 8.5 10^3/uL (1.7-8.2) H 12/09/19 18:37 Absolute Lymphs (auto) 1.7 10^3/uL (0.5-4.7) 12/09/19 18:37 Absolute Monos (auto) 0.4 10^3/uL (0.1-1.4) 12/09/19 18:37 Absolute Eos (auto) 0.0 10^3/uL (0.0-0.6) 12/09/19 18:37 Absolute Basos (auto) 0.0 10^3/uL (0.0-0.2) 12/09/19 18:37 Seg Neutrophils % 79.5 % (42-78) H 12/09/19 18:37 Urine Color YELLOW 12/09/19 16:35 Urine Appearance SLIGHTLY-CLOUDY 12/09/19 16:35 Urine pH 7.0 (5.0-9.0) 12/09/19 16:35 Ur Specific [place] 1.005 12/09/19 16:35 Urine Protein NEGATIVE mg/dL (NEGATIVE) 12/09/19 16:35 Urine Glucose (UA) NEGATIVE mg/dL (NEGATIVE) 12/09/19 16:35 Urine Ketones TRACE mg/dL (NEGATIVE) H 12/09/19 16:35 Urine Blood NEGATIVE (NEGATIVE) 12/09/19 16:35 Urine Nitrite NEGATIVE (NEGATIVE) 12/09/19 16:35 Urine Bilirubin NEGATIVE (NEGATIVE) 12/09/19 16:35 Urine Urobilinogen NEGATIVE mg/dL (<2.0) 12/09/19 16:35 Ur Leukocyte Esterase LARGE (NEGATIVE) H 12/09/19 16:35 Urine Ascorbic Acid NEGATIVE (NEGATIVE) 12/09/19 16:35 Membranes Rupture NEGATIVE (NEGATIVE) 12/09/19 16:45 Urine Opiates Screen NEGATIVE 12/09/19 16:35 Urine Methadone Screen NEGATIVE 12/09/19 16:35 Ur Barbiturates Screen NEGATIVE 12/09/19 16:35 Ur Phencyclidine Scrn NEGATIVE 12/09/19 16:35 Ur Amphetamines Screen NEGATIVE 12/09/19 16:35 U Benzodiazepines Scrn NEGATIVE 12/09/19 16:35 Urine Cocaine Screen NEGATIVE 12/09/19 16:35 U Marijuana (THC) Screen NEGATIVE 12/09/19 16:35 RPR NONREACTIVE (NONREACTIVE) 12/09/19 18:37 Blood Type A POSITIVE 12/09/19 18:37 Antibody Screen NEGATIVE 12/09/19 18:37 Plan Health Concerns: Mental issues and taking medicines Plan of Treatment: discharge home, brand planner to see pt, [facility] Goals: no complications, stable mental issues Time Spent: Less than 30 Minutes
[2019-12-12 10:59] VITALS: BP 121/64
== END 2019-12-12 12:27 | disposition home or self-care (01) | DRG 806 ==
LOC: LC 16:19 → LR 17:50 → 2S 12-10 01:41 → UNDODISIN 12-11 19:48
PROVIDERS: ADMIT Obstetrics & Gynecology; ATTEND Obstetrics & Gynecology
PROC: 10E0XZZ Delivery of Products of Conception, External Approach (ICD-10-PCS; principal; 2019-12-09)
DX: O99.344 Other mental disorders complicating childbirth (principal); F20.0 Paranoid schizophrenia; Z37.0 Single live birth; O99.824 Streptococcus B carrier state complicating childbirth; O69.81X0 Labor and delivery complicated by cord around neck, without compression, not applicable or unspecified; F31.9 Bipolar disorder, unspecified; F90.9 Attention-deficit hyperactivity disorder, unspecified type; O70.1 Second degree perineal laceration during delivery; Z86.19 Personal history of other infectious and parasitic diseases; Z3A.39 39 weeks gestation of pregnancy; F81.9 Developmental disorder of scholastic skills, unspecified
CPT/HCPCS: 36415; 80307; 81005; 84112; 85025; 85027; 86592; 86850; 86900; 86901; J2300; J2540; J2550; J2590; J3010; J3490; J7060

== ENCOUNTER 2020-04-23 22:46 | Emergency (ER) | payer MEDICARE, MEDICAID ==
--- NOTE | 2020-04-23 23:19 | ER Document Report ---
ED Psych Disorder / Suicide - General Mode of Arrival: Ambulatory Information source: Patient TRAVEL OUTSIDE OF THE [place] IN LAST 30 DAYS: No - HPI Patient complains to provider of: Suicidal ideation, Suicidal plan Onset: Just prior to arrival Quality of pain: No pain Suicide Risk Factors: Depressed Situational problems related to: Recent , Other - Recent new mother Associated symptoms: Depressed Similar symptoms previously: No Recently seen / treated by doctor: No - Related Data Home Medications: abilify, med for depression. <DAVIE AWAN - Last Filed: 04/24/20 01:25> <LUIS CRUZ - Last Filed: 04/24/20 07:40> <CINTIA SILVER - Last Filed: 04/24/20 12:18> <WENDY GEE - Last Filed: 04/24/20 12:56> - General Chief Complaint: Psych Problem Stated Complaint: DEPRESSION/PSYCH ISSUES Time Seen by Provider: 04/23/20 23:02 Primary Care Provider: Sergio Byrd [Outside] - Follow up as needed WILMA CHAPPELL MD [ACTIVE STAFF] - Follow up as needed Notes: She presents reporting a history of depression. Patient states she has been compliant with her medications. Patient states that she has a 4-month-old at home and her aunt recently . Patient states that her father 13 months ago. Patient states she had suicidal thoughts with a plan to take all of her antidepressant medications. Patient states she spoke with [employer] who advised her to come here for lab work testing. (DAVIE AWAN) - Related Data Allergies/Adverse Reactions: cinnamon Allergy (Verified 12/09/19 17:06) Past Medical History - General Information source: Patient - Social History Smoking Status: Never Smoker Frequency of alcohol use: None Drug Abuse: None Occupation: None Lives with: Family Family History: Reviewed & Not Pertinent Patient has suicidal ideation: Yes Renal/ Medical History: Denies: Hx Peritoneal Dialysis Psychiatric Medical History: Reports: Hx Attention Deficit Hyperactivity Disorder, Hx Depression Surgical Hx: Negative <DAVIE AWAN - Last Filed: 04/24/20 01:25> Review of Systems - Review of Systems Constitutional: No symptoms reported. denies: Fever, Recent illness EENT: No symptoms reported Cardiovascular: No symptoms reported Respiratory: No symptoms reported Gastrointestinal: No symptoms reported Genitourinary: No symptoms reported Female Genitourinary: No symptoms reported Musculoskeletal: No symptoms reported Skin: No symptoms reported Hematologic/Lymphatic: No symptoms reported Neurological/Psychological: Suicidal ideation <DAVIE AWAN - Last Filed: 04/24/20 01:25> Physical Exam <DAVIE AWAN - Last Filed: 04/24/20 01:25> - Vital signs Vitals: Temp Pulse Resp BP Pulse Ox 98.0 F 85 18 125/64 98 04/23/20 22:57 04/23/20 22:57 04/23/20 22:57 04/23/20 22:57 04/23/20 22:57 - Notes Notes: PHYSICAL EXAMINATION: GENERAL: Well-appearing and in no acute distress. HEAD: Atraumatic, normocephalic. EYES: sclera anicteric, conjunctiva are normal. ENT: nares patent. Moist mucous membranes. NECK: Normal range of motion, supple without lymphadenopathy LUNGS: CTAB and equal. No wheezes rales or rhonchi. HEART: Regular rate and rhythm without murmurs EXTREMITIES: Normal range of motion, no pitting edema. No cyanosis. BACK: No CVA tenderness NEUROLOGICAL: Cranial nerves grossly intact. Normal speech. Normal gait. PSYCH: Flat affect SKIN: Warm, Dry, normal turgor, no rashes or lesions noted (DAVIE AWAN) Course - Laboratory Result Diagrams: 04/24/20 00:10 04/24/20 00:10 <DAVIE AWAN - Last Filed: 04/24/20 01:25> - Laboratory Result Diagrams: 04/24/20 00:10 04/24/20 00:10 <LUIS CRUZ - Last Filed: 04/24/20 07:40> - Laboratory Result Diagrams: 04/24/20 00:10 04/24/20 00:10 <CINTIA SILVER - Last Filed: 04/24/20 12:18> - Laboratory Result Diagrams: 04/24/20 00:10 04/24/20 00:10 <WENDY GEE - Last Filed: 04/24/20 12:56> - Re-evaluation Re-evalutation: 04/23/20 23:18 Charge nurse advised of patient status and need for room. 04/24/20 01:25 Patient updated regarding plan of care at this time. Patient tearful stating that she does not want to be here and missed her child's first Halloween. Patient advised that today is only 24 April. Patient requesting to be able to call her spouse to pick her up to leave. Patient advised of plan to have her speak with one of the behavioral health team members later today. (DAVIE AWAN) 04/24/20 Urinalysis unremarkable with more squamous epithelials than leukocytes. Urine drug screen unremarkable. Vital signs unremarkable. Patient is medically cleared pending mental health team evaluation. (LUIS CRUZ) - Vital Signs Vital signs: Temp Pulse Resp BP Pulse Ox 98.1 F 91 16 116/64 98 04/24/20 11:14 04/24/20 11:14 04/24/20 11:14 04/24/20 11:14 04/24/20 11:14 - Laboratory Laboratory results interpreted by me: 04/24/20 04/24/20 00:10 01:00 Sodium 136.9 L Carbon Dioxide 21 L Creatinine 0.47 L Ur Leukocyte Esterase TRACE H Salicylates < 1.0 L Acetaminophen < 10 L Discharge <DAVIE AWAN - Last Filed: 04/24/20 01:25> <LUIS CRUZ - Last Filed: 04/24/20 07:40> <CINTIA SILVER - Last Filed: 04/24/20 12:18> <WENDY GEE - Last Filed: 04/24/20 12:56> - Discharge Clinical Impression: Suicidal ideation, Grief Condition: Stable Disposition: HOME, SELF-CARE Additional Instructions: You have been evaluated both medical and behavioral health teams have been deemed appropriate for discharge. Your family has agreed to continue to be your support network and be part of your plan of care. They have agreed to ensure you do not have access to medications and weapons and follow through with mental health recommendations. Please continue working with your outpatient mental health provider, BHAKTI Borges, for both medication management and therapy. DEPRESSION: Your evaluation reveals that you have mental depression. While symptoms may be vague, they often include disturbance of sleep, fatigue, loss of appetite, and general loss of interest in life. While depression may be a side effect of drugs, or a reaction to a major change in your life, many cases have no known cause. If depression is acute, and related to a major loss in your life, you can expect it to clear completely with time. If you have been depressed a long time, are prone to repeated bouts of depression or low mood, or have been thinking of suicide, get help. Depression can be treated with anti-depressant medication and counselling. Long-term depression will often take a few weeks to clear, even with appropriate medication. Follow-up care is important. SUICIDAL IDEATION: Suicidal ideation is a common medical term for thoughts about suicide, which may be as detailed as a formulated plan, without the suicidal act itself. Although most people who undergo suicidal ideation do not commit suicide, some go on to make suicide attempts. The range of suicidal ideation varies greatly from fleeting to detailed planning, role playing, and unsuccessful attempts. While thoughts about suicide are common, most people do not carry out serious actions to commit suicide. Based upon your evaluation and discussion with you, we do not believe you are currently at risk to act upon your thoughts of suicide. You have agreed to return to the Emergency Department, at any time, if you feel inclined to act upon your suicidal thoughts. FOLLOW-UP CARE: If you have been referred to a physician for follow-up care, call the physicians office for an appointment as you were instructed or within the next two days. If you experience worsening or a significant change in your symptoms, notify the physician immediately or return to the Emergency Department at any time for re-evaluation. Referrals: WILMA CHAPPELL MD [ACTIVE STAFF] - Follow up as needed Sergio Byrd [Outside] - Follow up as needed
[2020-04-24 00:23] LABS: ABSOLUTE EOSINOPHILS # (AUTO) 0.2 10^3/uL (0.0-0.6); ABSOLUTE LYMPHOCYTES (AUTO) 2.7 10^3/uL (0.5-4.7); ABSOLUTE MONOCYTES (AUTO) 0.5 10^3/uL (0.1-1.4); ABSOLUTE NEUT (AUTO) 5.6 10^3/uL (1.7-8.2); BASOPHILS % (AUTO) 0.5 % (0-2); EOSINOPHILS % (AUTO) 2.5 % (0-6); HEMATOCRIT 36.8 % (36.0-47.0); HEMOGLOBIN 12.9 g/dL (12.0-15.5); LYMPHOCYTES % (AUTO) 29.3 % (13-45); MEAN CORPUSCULAR HEMOGLOBIN 29.4 pg (27.0-33.4); MEAN CORPUSCULAR VOLUME 84 fl (80-97); MONOCYTES % (AUTO) 5.9 % (3-13); PLATELET COUNT 354 10^3/uL (150-450); RED BLOOD COUNT 4.38 10^6/uL (3.72-5.28); RED CELL DISTRIBUTION WIDTH 12.6 % (11.5-14.0); SEGMENTED NEUTROPHILS % (AUTO) 61.8 % (42-78); TOTAL CELLS COUNTED % (AUTO) 100 %; WHITE BLOOD COUNT 9.1 10^3/uL (4.0-10.5)
[2020-04-24 00:47] LABS: ALBUMIN 4.5 g/dL (3.5-5.0); ALKALINE PHOSPHATASE 83 U/L (38-126); ANION GAP 12 (5-19); ASPARTATE AMINO TRANSFERASE 29 U/L (14-36); BILIRUBIN,DIRECT 0.1 mg/dL (0.0-0.4); BILIRUBIN,TOTAL 0.2 mg/dL (0.2-1.3); BLOOD UREA NITROGEN 12 mg/dL (7-20); CALCIUM 9.9 mg/dL (8.4-10.2); CARBON DIOXIDE 21 mmol/L (22-30); CHLORIDE 104 mmol/L (98-107); GLUCOSE 100 mg/dL (75-110); POTASSIUM 4.4 mmol/L (3.6-5.0); TOTAL PROTEIN 7.7 g/dL (6.3-8.2)
[2020-04-24 00:48] LABS: ACETAMINOPHEN < 10 ug/mL (10-30); ALCOHOL < 10 mg/dL (NONE DETECTED); SALICYLATE < 1.0 mg/dL (2.0-20.0)
[2020-04-24 02:13] LABS: APPEARANCE,URINE SLIGHTLY-CLOUDY; BILIRUBIN,URINE NEGATIVE (NEGATIVE); COLOR,URINE STRAW; GLUCOSE, URINE NEGATIVE (NEGATIVE); KETONES,URINE NEGATIVE (NEGATIVE); LEUKOCYTE ESTERASE,URINE TRACE (NEGATIVE); NITRITE,URINE NEGATIVE (NEGATIVE); PROTEIN,URINE NEGATIVE (NEGATIVE); URINE SPECIFIC GRAVITY 1.009; UROBILINOGEN,URINE NEGATIVE mg/dL (<2.0)
[2020-04-24 02:24] LABS: URINE AMPHETAMINES SCREEN NEGATIVE; URINE BARBITURATES SCREEN NEGATIVE; URINE BENZODIAZEPINES SCREEN NEGATIVE; URINE COCAINE SCREEN NEGATIVE; URINE MARIJUANA (THC) SCREEN NEGATIVE; URINE METHADONE SCREEN NEGATIVE; URINE PHENCYCLIDINE SCREEN NEGATIVE
--- NOTE | 2020-04-24 08:53 | EKG REPORT ---
SEVERITY:- ABNORMAL ECG - SINUS RHYTHM LEFT ATRIAL ABNORMALITY : Confirmed by: Shant Merchant MD 24-Apr-2020 08:52:17
--- NOTE | 2020-04-24 12:31 | PSYCHOLOGICAL NOTE ---
Psych Note - Psych Note Date seen by psych provider: 04/24/20 Time seen by psych provider: 11:45 Psych Note: Reason for Consult: Suicidal ideation Consent Permissions: latanya Landis Gabriela, Patient arrived to [facility] ED via via POV for concerns of suicidal ideation. Clinical Presentation: Acute grief Passive suicidal ideation i.e. no intent IVC Criteria per [facility] 122C Dangerous to others Within the relevant past the individual No has inflicted or attempted to inflict or threatened to inflict serious bodily harm on another AND No that there is a reasonable probability that this conduct will be repeated. OR No has acted in such a way as to create a substantial risk of serious bodily harm to another AND No that there is a reasonable probability that this conduct will be repeated. OR No has engaged in extreme destruction of property AND NO that there is a reasonable probability that this conduct will be repeated. Previous episodes of dangerousness to others, when applicable, may be considered when determining reasonable probability of future dangerous conduct. Clear, cogent, and convincing evidence that an individual has committed a homicide in the relevant past is prima facie evidence of dangerousness to others. Dangerous to self Within the relevant past the individual has done any of the following: acted in such a way as to show ALL of the following: No The individual would be unable without care, supervision, and the continued assistance of others not otherwise available, to exercise self- control, judgment, and discretion in the conduct of the individual's daily responsibilities and social relations or to satisfy the individual's need for nourishment, personal or medical care, group home, or self-protection and safety. AND No There is a reasonable probability of the individual suffering serious physical debilitation within the near future unless adequate treatment is given. A showing of behavior that is grossly irrational, of actions that the individual is unable to control, of behavior that is grossly inappropriate to the situation, or of other evidence of severely impaired insight and judgment shall create a prima facie inference that the individual is unable to care for himself or herself. OR YES has attempted suicide or threatened suicide AND No that there is a reasonable probability of suicide unless adequate treatment is given Patient voluntarily came in to [facility] ED for an evaluation after expressing thoughts of wanting to harm herself. Patient has no history of engaging in self-harm or suicide attempts. Patient is experiencing acute grief currently after lost of her aunt 4 days ago. Patient has an outpatient mental health provider and is receiving both medication management and therapeutic services. Patient's family agreed to be part of patient's plan of care and have already locked up all medications and confirmed that she will have no access to medications or weapons. Patient has independently taken steps into identifying the need to increase therapy engage in more self-care activities such as walking. OR No has mutilated himself or herself or attempted to mutilate himself or herself AND No that there is a reasonable probability of serious self-mutilation unless adequate treatment is given. NOTE: Previous episodes of dangerousness to self, when applicable, may be considered when determining reasonable probability of physical debilitation, suicide, or self-mutilation. Impression\plan: Patient is commended for rescind of 24-hour petition for evaluation and is cleared from acute psychiatric services; paperwork is signed and placed in patient's chart. Patient presented voluntarily after having thoughts of harming herself due to acute stress and grief after losing her aunt form days ago. Patient denies she wants to and states that she has identified the need to increase her therapy, continue medication as directed and increase self-care and coping skill of walking. Patient's family confirm they will be part of patient's plan of care and have identified they have already locked up all medications in the home. It is confirmed the patient will not have any access to medications and weapons will follow through with mental health recommendations patient and patient's family feel comfortable with plan of care. Patient is recommended to follow-up with her outpatient mental health provider, BHAKTI Borges, for both medication management and therapeutic services. At this time medication adjustments are not recommended as patient identifies her medications were working very well until situational stressor i.e. the loss of her aunt occurred. 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 Dr. Morales was consulted to care management of this patient; attending physicians in agreement with recommendations and disposition.
--- NOTE | 2020-04-24 12:56 | ER Document Report ---
Doctor's Note Notes: 04/24/20 12:55 Patient has been evaluated by the psychiatric team who feel she is safe for discharge. They have involve the family who are comfortable taking the patient home. They are on the way in to pick the patient up. I spoke with the patient she voices no thoughts of harming herself or harming others at this point. She states that she will make closer outpatient follow-up visits with her therapist. She denies other complaints at this time. She is answering all questions appropriately.
[2020-04-24 13:04] VITALS: BP 127/65
== END 2020-04-24 13:07 | disposition home or self-care (01) ==
LOC: ER 22:46
DX: R45.851 Suicidal ideations (principal); F43.21 Adjustment disorder with depressed mood; F32.9 Major depressive disorder, single episode, unspecified
CPT/HCPCS: 36415; 80053; 80307; 81001; 84703; 85025; 93005; 93010; 99285

== ENCOUNTER 2020-06-13 02:19 | Emergency (ER) | payer MEDICARE, MEDICAID ==
[2020-06-13 03:16] LABS: ABSOLUTE BASOPHILS # (AUTO) 0.1 10^3/uL (0.0-0.2); ABSOLUTE EOSINOPHILS # (AUTO) 0.2 10^3/uL (0.0-0.6); ABSOLUTE LYMPHOCYTES (AUTO) 1.8 10^3/uL (0.5-4.7); ABSOLUTE MONOCYTES (AUTO) 0.5 10^3/uL (0.1-1.4); ABSOLUTE NEUT (AUTO) 8.4 10^3/uL (1.7-8.2); BASOPHILS % (AUTO) 0.5 % (0-2); EOSINOPHILS % (AUTO) 1.7 % (0-6); HEMOGLOBIN 13.5 g/dL (12.0-15.5); LYMPHOCYTES % (AUTO) 16.5 % (13-45); MEAN CORPUSCULAR HEMOGLOBIN 28.6 pg (27.0-33.4); MEAN CORPUSCULAR HGB CONC 34.5 g/dL (32.0-36.0); MEAN CORPUSCULAR VOLUME 83 fl (80-97); MONOCYTES % (AUTO) 4.7 % (3-13); PLATELET COUNT 374 10^3/uL (150-450); RED CELL DISTRIBUTION WIDTH 13.8 % (11.5-14.0); SEGMENTED NEUTROPHILS % (AUTO) 76.6 % (42-78); TOTAL CELLS COUNTED % (AUTO) 100 %
[2020-06-13 03:35] LABS: ALBUMIN 4.7 g/dL (3.5-5.0); ALKALINE PHOSPHATASE 94 U/L (38-126); ANION GAP 12 (5-19); ASPARTATE AMINO TRANSFERASE 43 U/L (14-36); BILIRUBIN,DIRECT 0.2 mg/dL (0.0-0.4); BILIRUBIN,TOTAL 0.4 mg/dL (0.2-1.3); BLOOD UREA NITROGEN 18 mg/dL (7-20); CALCIUM 10.4 mg/dL (8.4-10.2); CARBON DIOXIDE 25 mmol/L (22-30); CHLORIDE 102 mmol/L (98-107); GLUCOSE 114 mg/dL (75-110); POTASSIUM 4.5 mmol/L (3.6-5.0); TOTAL PROTEIN 7.9 g/dL (6.3-8.2)
[2020-06-13 03:36] LABS: ACETAMINOPHEN < 10 ug/mL (10-30); ALCOHOL < 10 mg/dL (NONE DETECTED); SALICYLATE < 1.0 mg/dL (2.0-20.0)
[2020-06-13 03:37] LABS: APPEARANCE,URINE SLIGHTLY-CLOUDY; BILIRUBIN,URINE NEGATIVE (NEGATIVE); COLOR,URINE YELLOW; GLUCOSE, URINE NEGATIVE (NEGATIVE); KETONES,URINE NEGATIVE (NEGATIVE); LEUKOCYTE ESTERASE,URINE TRACE (NEGATIVE); NITRITE,URINE NEGATIVE (NEGATIVE); PROTEIN,URINE 30 mg/dL (NEGATIVE); URINE SPECIFIC GRAVITY 1.019; UROBILINOGEN,URINE NEGATIVE mg/dL (<2.0)
[2020-06-13 03:45] LABS: URINE AMPHETAMINES SCREEN NEGATIVE; URINE BARBITURATES SCREEN NEGATIVE; URINE BENZODIAZEPINES SCREEN NEGATIVE; URINE COCAINE SCREEN NEGATIVE; URINE MARIJUANA (THC) SCREEN NEGATIVE; URINE METHADONE SCREEN NEGATIVE; URINE PHENCYCLIDINE SCREEN NEGATIVE
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
[2020-06-13 14:01] VITALS: BP 124/69
--- NOTE | 2020-06-13 17:27 | EKG REPORT ---
SEVERITY:- BORDERLINE ECG - SINUS TACHYCARDIA BORDERLINE T WAVE ABNORMALITIES : Confirmed by: Kathy Dallas MD 13-Jun-2020 17:26:16
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
== END 2020-06-13 14:07 | disposition home or self-care (01) ==
LOC: ER 02:19
DX: F31.9 Bipolar disorder, unspecified (principal); F91.9 Conduct disorder, unspecified; F90.9 Attention-deficit hyperactivity disorder, unspecified type; Z79.899 Other long term (current) drug therapy
CPT/HCPCS: 36415; 80053; 80307; 81001; 84703; 85025; 93005; 93010; 99284